=== PATIENT | female | born 1990 | race Caucasian/White ===

== ENCOUNTER 2017-01-30 22:00 | Emergency (ER) | payer BC ==
--- NOTE | 2017-01-31 00:28 | EDM.PDOC ---
ED HPI GENERAL MEDICAL PROBLEM - General Chief Complaint: TAG [employer]ESS [employer]PERATOR Problem Stated Complaint: BACK PAIN Time Seen by Provider: 01/30/17 22:27 Source of Information: Reports: Patient History Limitations: Reports: No Limitations - History of Present Illness INITIAL COMMENTS - FREE TEXT/NARRATIVE: HISTORY AND PHYSICAL: History of present illness: [26-year-old female prime now presents emergency department because she had a small amount of vaginal bleeding. Patient think she is about 16 weeks by dates. No care. She is taking vitamins. Tonight patient had no pain or cramps but she did have a small amount of bleeding from her vagina. Normal bowel bladder habits. No hematuria. No pelvic pain. Patient does not know her Rh status she has no prior history of gynecologic problems and she's never had a pelvic exam] Review of systems: As per history of present illness and below otherwise all systems reviewed and negative. Past medical history: As per history of present illness and as reviewed below otherwise noncontributory. Surgical history: As per history of present illness and as reviewed below otherwise noncontributory. Social history: No reported history of drug or alcohol abuse. Family history: As per history of present illness and as reviewed below otherwise noncontributory. Physical exam: HEENT: Normocephalic, atraumatic, pupils normal and symmetrical, supple neck, no meningismus, normal color Lungs: Normal and symmetrical chest wall excursion bilateral with no tachypnea or increased work of breathing, grossly normal chest exam Heart: No tachycardia in triage Abdomen: Normal-appearing, nondistended, no visible mass or asymmetry Pelvis: Normal-appearing Genitourinary: Pelvic exam done by ks with nurse Perez present. A short normal external genitalia. No active vaginal bleeding. Normal vaginal mucosa. Trace dark blood in the vaginal vault no active bleeding from the cervix. Bimanual unremarkable. Uterus consistent with dates of ultrasound Rectal exam: Deferred Extremities: Atraumatic, normal use and range of motion, no visible evidence of gross neurovascular compromise Neuro: Awake, alert, oriented. Normal and appropriate mental status. Cranial nerves grossly unremarkable. Motor function normal. Nonfocal neurologic exam. Diagnostics: [] Therapeutics: [] Impression: [] Plan: [Patient with twin intrauterine of which she was not aware. Quantitative hCG 197,000 and Rh status is positive. Patient is 14 weeks 0 days by ultrasound today. Her twin gestations have positive heart activity. She stable and no further workup or treatment indicated at this time. Patient already has an appointment scheduled with TAG PRESS OPERATOR for follow-up and to initiate care. She and her sister agree with outpatient follow-up and strict return precautions given Definitive disposition and diagnosis as appropriate pending reevaluation and review of above. - Related Data Allergies Allergy/AdvReac Type Severity Reaction Status Date / Time No Known Allergies Allergy Verified 01/30/17 22:11 Home Meds: Home Meds . [No Known Home Meds] 01/30/17 [History] Past Medical History - Past Health History Medical/Surgical History: Denies Medical/Surgical History Social & Family History - Family History Family Medical History: Noncontributory - Tobacco Use Smoking Status *Q: Current Every Day Smoker Years of Tobacco use: 8 Packs/Tins Daily: 0.5 - Recreational Drug Use Recreational Drug Use: No ED ROS GENERAL - Review of Systems Review Of Systems: See Below (History of present illness) ED EXAM, GENERAL - Physical Exam Exam: See Below (History of present illness) Course - Vital Signs Last Recorded V/S: Last Vital Signs Temp 36.6 C 01/31/17 00:41 Pulse 78 01/31/17 00:41 Resp 16 01/31/17 00:41 BP 128/70 01/31/17 00:41 Pulse Ox 98 01/31/17 00:41 - Orders/Labs/Meds Orders: Active Orders 24 hr Category Date Time Status OB Transvaginal [US] Stat Exams 01/30/17 22:33 Taken Labs: Laboratory Tests 01/30/17 01/30/17 01/30/17 Range/Units 22:45 22:52 22:52 HCG, Quant 19031.6 mIU/mL Urine HCG, Qual POSITIVE (NEGATIVE) Blood Type B POSITIVE Departure - Departure Time of Disposition: 00:29 Disposition: Home, Self-Care 01 Condition: good Clinical Impression: Vaginal bleeding in patient at less than 20 weeks gestation - Discharge Information Instructions: Vaginal Bleeding During , First Trimester Referrals: Alba Adam MD [Primary Care Provider] - Forms: ED Department Discharge Additional Instructions: You are with twins. [place] [address] [place]. Your blood type is B+. This is important to remember. Both pregnancies have normal heart activity. The aware that it is always concerning when you have vaginal bleeding in . Observe pelvic rest, which means don't be sexually active or especially vigorous until cleared by your TAG PRESS OPERATOR doctor. Follow-up with your TAG PRESS OPERATOR doctor in one to 2 days and return immediately for new severe or worsening symptoms specifically for worsening bleeding or pain. - My Orders Last 24 Hours: My Active Orders 01/30/17 22:33 OB Transvaginal [US] Stat - Assessment/Plan Last 24 Hours: My Active Orders 01/30/17 22:33 OB Transvaginal [US] Stat
[2017-01-31 00:43] VITALS: BP 128/70
--- NOTE | 2017-02-02 10:37 | US ---
EXAM DATE: 01/30/17 PATIENT'S AGE: 26 Patient: FELIPE OROZCO Facility: [place], [place] Site . Site : 1990 Study: OB Pelvis [id number]/10/2017 12:16:23 AM Ordering Physician: Torin Pelayo Final Report: INDICATION: Vaginal bleeding TECHNIQUE: Ultrasound OB pelvis transabdominal. Real time casas scale imaging of the fetus was performed as well as color Doppler and spectral Doppler analysis of the umbilical artery. COMPARISON: None FINDINGS: LMP: Gestational age by LMP: 14 weeks 0 days Estimated due date by LMP: 07/31/2017 Sonographic imaging demonstrates a two living intrauterine gestation. Fetus A: A regular cardiac rate of 161 beats per minute. Fetus a has a breech orientation. The placenta lies anterior without evidence of placenta previa. Amniotic fluid volume appears normal. Cervix length 3.8 centimeter. The following biometric measurements were obtained: Biparietal diameter: 2.42 centimeters consistent with a gestational age of 14 weeks 0 days Head circumference: 5.36 centimeters consistent with a gestational age of 14 weeks 2 days Abdominal circumference: 7.9 centimeters consistent with a gestational age of 14 weeks 2 days Femur length: 1.18 centimeters consistent with a gestational age of 13 weeks 4 days Estimated weight 70 grams. survey not requested. Fetus B is maternal left: A regular cardiac rate of 150 beats per minute. Fetus has a breech orientation. The placenta lies anterior without evidence of placenta previa. An air-fluid lung is normal. The following biometric measurements were obtained: Biparietal diameter: 2.52 centimeters consistent with a gestational age of 14 weeks 2 days Head circumference: 9.52 centimeters consistent with a gestational age of 14 weeks 2 days Abdominal circumference: 7.02 centimeters consistent with a gestational age of 13 weeks to 4 days Femoral length: 1.18 centimeters consistent with a gestational age of 13 weeks 4 days Estimated weight 80 grams. survey not requested. IMPRESSION: Two intrauterine pregnancies with toenail with a composite gestational age of 14 weeks 0 days and twin B with a composite gestational age of 14 weeks 0 days. This is consistent with gestational age by LMP of 14 weeks 0 days. Both twin a and twin B are in breech presentation. Otherwise no gross abnormalities. Dictated by Mina Geronimo MD @ 01/31/2017 12:32:24 AM Dictated by: Mina Geronimo MD @ 01/31/2017 00:32:36 (Electronic Signature) Report Signed by Proxy. [facility]
== END 2017-01-31 00:41 | disposition home or self-care (01) ==
LOC: MW.ED 22:00
DX: O20.9 Hemorrhage in early pregnancy, unspecified (principal); O99.332 Smoking (tobacco) complicating pregnancy, second trimester; F17.210 Nicotine dependence, cigarettes, uncomplicated; Z3A.14 14 weeks gestation of pregnancy
CPT/HCPCS: 36415; 76817; 76817-26; 81025; 84702; 86900; 86901; 99282; 99284-25

== ENCOUNTER 2023-02-26 17:35 | Emergency (ER) | payer MEDICAID ==
[2023-02-26] MEDS ORDERED: Methadone Oral Concentrate 10 MG/1 ML ML 30 ML Bottle PO STA (19:44)
[2023-02-26] MEDS ORDERED: Methadone 10 MG Tab ONE (20:28)
[2023-02-27 00:51] VITALS: PULSE 79
[2023-02-27 00:52] VITALS: BP 130/80
== END 2023-02-26 20:49 ==
LOC: MW.ED 17:35
DX: F41.9 Anxiety disorder, unspecified (principal); F19.20 Other psychoactive substance dependence, uncomplicated; Z02.89 Encounter for other administrative examinations
CPT/HCPCS: 99283; A9270; 99284